=== PATIENT | female | born 2000 | race Caucasian/White ===

== ENCOUNTER 2021-01-17 17:25 | Emergency (ER) | payer OTHER ==
[~2021-01-17] VITALS: Ht 157.5 cm; Wt 99.8 kg
--- OUTSIDE RECORDS SUMMARY | 2021-01-17 17:31 | XMS REPORT | Clinical Summary ---
Author Author [facility] Organization [facility] Address Unknown Phone Unavailable Care Team Providers Care Bat Lathe Operator Name Role Phone Ella Sims DO PCP Allergies No Known Active Allergies Medications End Date Status Medication Sig Dispensed Refills Start Date Active copper (PARAGARD) 380 1 each by 0 square mm IUD IUD Intrauterine route every 10 years. Active fluticasone propionate SPRAY 1 SPRAY 16 mL 2 0 (FLONASE) 50 INTO EACH 1 mcg/actuation nasal NOSTRIL EVERY sprayIndications: DAY Allergic rhinitis, unspecified seasonality, unspecified trigger Active cetirizine (ZYRTEC) 10 MG TAKE 1 TABLET 30 tablet 1 tabletIndications: BY MOUTH 1 Allergic rhinitis, EVERY DAY IN unspecified seasonality, THE EVENING unspecified trigger 03/24/2021 Active lisdexamfetamine Take 1 30 capsule 0 (VYVANSE) 30 MG capsule (30 1 capsuleIndications: mg total) by Attention deficit mouth every disorder (ADD) without morning. hyperactivity 02/22/2021 Active lisdexamfetamine Take 1 30 capsule 0 (VYVANSE) 30 MG capsule (30 1 capsuleIndications: mg total) by Attention deficit mouth every disorder (ADD) without morning. hyperactivity 01/23/2021 Active lisdexamfetamine Take 1 30 capsule 0 (VYVANSE) 30 MG capsule (30 1 capsuleIndications: mg total) by Attention deficit mouth every disorder (ADD) without morning. hyperactivity 12/24/2021 Active escitalopram oxalate Take 1 tablet 90 tablet 1 (LEXAPRO) 20 mg (20 mg total) 1 tabletIndications: by mouth Anxiety daily. Active triamcinolone (KENALOG) APPLY TO 30 g 1 0.1 % AFFECTED AREA 1 ointmentIndications: TWICE A DAY Eczema, unspecified type 12/24/2020 Discontinued (Therapy comple charissa) escitalopram oxalate TAKE 1 TABLET 90 tablet 1 (LEXAPRO) 10 mg BY MOUTH 1 tabletIndications: EVERY DAY Moderate major depression (HCC), Anxiety 12/27/2020 Discontinued triamcinolone (KENALOG) Apply 30 g 1 0.1 % topically 2 1 ointmentIndications: (two) times a Eczema, unspecified type day. 12/24/2020 Discontinued (Reorder) lisdexamfetamine Take 1 30 capsule 0 (VYVANSE) 30 MG capsule (30 1 capsuleIndications: mg total) by Attention deficit mouth every disorder (ADD) without morning. hyperactivity Active Problems Problem Noted Date Moderate major depression 09/20/2020 Last Assessment & Plan: Formatting of this note might be differ ent from the original. - improved/stable - cont Lexapro 10mg - Pt agreed to call 911, go to nearest ED or contact physician if experiencing worsening psychiatric dete rioration, including but not limited to risks to self or others or inability to self care Anxiety 09/20/2020 Last Assessment & Plan: Formatting of this note might be differ ent from the original. - stable/doing well - cont Lexapro 20mg - stable, doing well - Pt to call 911, go to nearest ED or c ontact physician if experiencing worsening psychiatric deterioration, in cluding but not limited to risks to self or others or inability to self car e ADD (attention deficit disorder) 11/13/2019 Last Assessment & Plan: Formatting of this note might be differ ent from the original. - stable/doing well - cont Vyvanse 30 mg - Pt stable on med, good benefit with n o side effects. - Aware of side effects and precautions . - Controlled Rx History reviewed - f/u 3 months IUD (intrauterine device) in place 11/13/2019 Overview: Formatting of this note might be differ ent from the original. 2018 Encounters Care Team Description Date Type Specialty Ella Sims, DO Medication Refill 12/25/2020 Refill Primary Care Levi, Ella, DO Attention deficit disorder (ADD) without hyperactivity (Primary Dx); Anxiety 12/24/2020 Video Visit Primary Care Deysi Salguero RN COVID inquiry 12/21/2020 Telephone Primary Care Ella Sims, Medication Refill 12/03/2020 Refill Primary Care Ella Sims DO Medication Refill 12/03/2020 Refill Primary Care Ella Sims DO Attention deficit disorder (ADD) without hyperactivity (Primary Dx); Anxiety; Allergic rhinitis, unspecified seasonality, unspecified trigger; Fatigue, unspecified type; Suspected sleep apnea 11/10/2020 Office Visit Primary Care from Last 3 Months Immunizations Name Administration Dates Next Due DTaP 05/08/2005, 08/21/2001, 10/2000, 2000, 2000 HPV Quadrivalent 12/04/2012, 06/14/2012, Hepatitis A (peds) 05/08/2005, 06/17/2004 Hepatitis B, pediatric or 2000, 2000, adolescent Hib (PRT-T) 08/21/2001, 2000, , 2000 IPV 05/08/2005, 08/21/2001, , 2000 Influenza QIV (IM) 01/26/2019 Influenza, Injectable, 03/01/2018 Madin Marisela Canine Kidney, Preservative Free, Quadrivalent MMR 05/08/2005, 06/25/2001 Meningococcal (Menactra) 12/07/2011 conjugate vaccine MCV4 Meningococcal B (Bexsero) 02/22/2017 Moderna Sars-cov-2 08/30/2020, 07/28/2020 Pneumococcal Conjugate 06/25/2001, 2000, , 2000 7-Valent Tdap 11/13/2019, 08/15/2010 Varicella 10/02/2008, 06/25/2001 Family History Medical History Relation Name Comments Diabetes Father emir davis type 2 Hypertension Father emir davis Tobacco Use Father emir davis Drug abuse Maternal Aunt jose e denilson Alcohol abuse Maternal jackie harris Grandfather (my moms dad ) Cancer Maternal rolanedray harris lung and brain cancerr Grandfather (my moms dad ) ADD / ADHD Mother yohana davis Breast cancer Mother yohana davis Cancer Mother yohana plummer cancer ryan Hypertension Mother yohana davis Hyperthyroidism Mother yohana davis Learning disabilities Mother yohana davis Hearing loss Paternal cristian davis Grandfather Diabetes Paternal silvia harris type 1 Grandmother Learning disabilities Paternal silvia harris Grandmother Miscarriages / Paternal silvia harris Stillbirths Grandmother Relation Name Status Comments Brother Alive Father emir davis Alive Maternal Aunt jose e oreilly Maternal Grandfather jackie harris (my moms dad ) Mother yohana davis Alive Paternal Grandfather cristian davis Paternal Grandmother silvia harris Social History Date Tobacco Use Types Packs/Day Years Used Never Smoker 0 0 Smokeless Tobacco: Never Used Tobacco Cessation: Counseling Given: No Comments Alcohol Use Standard Drinks/Week Yes 0 (1 standard drink = 0.6 o z pure alcohol) Alcohol Habits Answer Date Recorded How often do you have a drink containing alcohol? Monthly or less 11/13/2019 How many drinks containing alcohol do you have on 1 or 2 11/13/2019 a typical day when you are drinking? How often do you have six or more drinks on one Not asked occasion? Sex Assigned at Date Recorded Female 11/08/2019 2:33 PM CDT Last Filed Vital Signs Reading Time Taken Comments Vital Sign 112/78 11/10/2020 3:01 PM CDT Blood Pressure 85 11/10/2020 3:01 PM CDT Pulse 36.6 C (97.8 F) 11/10/2020 3:01 PM CDT Temperature 16 11/10/2020 3:01 PM CDT Respiratory Rate 98% 11/10/2020 3:01 PM CDT Oxygen Saturation - - Inhaled Oxygen Concentration 104.3 kg (230 lb) 11/10/2020 3:01 PM CDT Weight 157.5 cm (5' 2") 11/10/2020 3:01 PM CDT Height 42.07 11/10/2020 3:01 PM CDT Body Mass Index Plan of Treatment Health Maintenance Due Date Last Done Comments Influenza Vaccine (#1) 2021 01/26/2019, 03/01/2018 Depression Monitoring 11/10/2021 11/10/2020 PHQ-9 # Td/Tdap# 11/12/2029 11/13/2019, 08/15/2010, 05/08/2005, Additional history exists Pneumococcal Vaccine: Aged Out 06/25/2001, No longe r eligible based on patient's age to Pediatrics (0 to 5 Years) 2000, complete th is topic and At-Risk Patients (6 2000, to 64 Years) Additional history exists MCV4 Vaccine Aged Out 12/07/2011 No longer eligi ble based on patient's age to complete this topic HPV Vaccine Completed 12/04/2012, 06/14/2012, 05/09/2012 COVID-19 Vaccine Completed 08/30/2020, 07/28/2020 Results Not on filefrom Last 3 Months Insurance Type Payer Benefit Subscriber ID Effective Phone Address Plan / Dates Group AETNA AETNA [id number] LOCAL resent 6 1951 Asiya Davis Personal/F Self [id number] (Home) [place], [place] [address] TRUE DAVIS Personal/F Father 10/23/1960 [id number] (Home) [place], [place] [address] Advance Directives For more information, please contact: [phone] Patient Weed Inspector Explanation Type Date Recorded Advance Directives and Living Will Power of Fur Drummer Health Care Directive Health Care Directive
--- OUTSIDE RECORDS SUMMARY | 2021-01-17 17:31 | XMS REPORT | Encounter Summary ---
Author Author [facility] Organization [facility] Address Unknown Phone Unavailable Care Team Providers Care Percussion Tuner Name Role Phone Ella Sims PCP Reason for Visit * Reason Onset Date Comments COVID inquiry 12/21/2020 Encounter Details Care Team Description Date Type Department Deysi Salguero, RN COVID inquiry 12/21/2020 Telephone [facility] [address] [facility] [address] [place] [address] Social History Date Tobacco Use Types Packs/Day Years Used Never Smoker 0 0 Smokeless Tobacco: Never Used Comments Alcohol Use Standard Drinks/Week Yes 0 [...] Date Recorded Female 11/08/2019 2:33 PM CDT documented as of this encounter Miscellaneous Notes * Telephone Encounter - Deysi Salguero RN - 12/21/2020 12:09 PM CDT Pt request her OV for 12/24/20 to be changed to VV, b/c pt has been exposed to COV ID by her mom. Exposed yesterday. Pt has no sx but has already sched herself f or COVID testing today at [facility]. SWRN documented in this encounter Plan of Treatment Not on filedocumented as of this encounter Visit Diagnoses Not on filedocumented in this encounter
--- OUTSIDE RECORDS SUMMARY | 2021-01-17 17:31 | XMS REPORT | Encounter Summary ---
Author Author [facility] Organization [facility] Address Unknown Phone Unavailable Care Team Providers Care Candle Wicker Name Role Phone Ella Sims DO PCP Reason for Visit * Reason Comments Follow-up Encounter Details Care Team Description [place] [address] [facility] [address] [place] [address] Attention deficit disorder (ADD) without hyperactivity (Primary Dx); Anxiety 12/24/[address] [facility] [address] [facility] [address] [place], [place] [id number] Social History Date Tobacco Use Types Packs/Day [...] PM CDT documented as of this encounter Progress Notes * Ella Sims DO - 12/24/2020 4:00 PM CDT Patient Name: Asiya Huggins Visit Date: 12/24/2020 CONSENT OBTAINED FOR VIDEO VISIT PLATFORM: Yes Chief Complaint: Follow-up History of Present Illness Presents via VV for f/u. Anxiety improved w/ Lexapro increase to 20mg. Would like to continue at this dos e. presents for ADHD med management. Doing well on Vyvanse 30mg. She starts school soon and we see how she feels taking this with stool, length of coverage etc, sh ray has been on summer break. Topical steroid has helped with her eczema. Stable controlled with current regimen. Denies any new side effects. Denies any change in efficacy. Denies any change in sleep, mood or appetite. Denies anxiety, irritability. Denies SI/HI. No weight changes/CP/palpitations/dizziness. ROS negative except for HPI Review of Systems Vitals available and taken on home machine: Height: 1.575 m (5' 2") Weight:: 103.6 kg (228 lb 8 oz) IBW(lbs.) (Calculated) : 110.45 Pulse:: 82 BMI (Calculated): 41.8 Physical Exam Video visits do not allow for auscultation of heart and lungs or measurement of vital signs. Any vital signs documented are self-reported. Appearance: wearing casual clothing, appropriate grooming and hygiene Behavior: calm, cooperative, good eye contact Speech: normal tone, normal rhythm, normal rate, nonpressured Mood: normal Affect: euthymic, reactive, full range, nonlabile, mood congruent Thought content: denies active and passive SI/HI Thought process: linear, logical, goal-directed Perceptions: denies AVH Insight/Judgement: good Alert and oriented x 4 Concentration: intact Memory: grossly intact Assessment/Plan Problem List Items Addressed This Visit Behavioral Health ADD (attention deficit disorder) - Primary (Chronic) - stable/doing well - cont Vyvanse 30 mg - Pt stable on med, good benefit with no side effects. - Aware of side effects and precautions. - Controlled Rx History reviewed - f/u 3 months Relevant Medications lisdexamfetamine (VYVANSE) 30 MG capsule (Start on 02/22/2021) lisdexamfetamine (VYVANSE) 30 MG capsule (Start on 01/23/2021) lisdexamfetamine (VYVANSE) 30 MG capsule escitalopram oxalate (LEXAPRO) 20 mg tablet Anxiety - stable/doing well - cont Lexapro 20mg - stable, doing well - Pt to call 911, go to nearest ED or contact physician if experiencing worsenin g psychiatric deterioration, including but not limited to risks to self or other s or inability to self care Relevant Medications escitalopram oxalate (LEXAPRO) 20 mg tablet For date of service 12/24/2020, the patient was located at her home and I am seein g the patient at office via [employer] video visit.. Provider: Ella Sims DO Provider office location: [address] [facility] [address] Dept: [phone] Dept documented in this encounter Miscellaneous Notes * Assessment & Plan Note - Ella Sims DO - 12/24/2020 4:47 PM CDT Associated Problem(s): Anxiety - stable/doing well - cont Lexapro 20mg - stable, doing well - Pt to call 911, go to nearest ED or contact physician if experiencing worsenin g psychiatric deterioration, including but not limited to risks to self or other s or inability to self care * Assessment & Plan Note - Ella Sims DO - 12/24/2020 4:46 PM CDT Associated Problem(s): ADD (attention deficit disorder) - stable/doing well - cont Vyvanse 30 mg - Pt stable on med, good benefit with no side effects. - Aware of side effects and precautions. - Controlled Rx History reviewed - f/u 3 months documented in this encounter Plan of Treatment Not on filedocumented as of this encounter Visit Diagnoses Diagnosis Attention deficit disorder (ADD) withou t hyperactivity - Primary Anxiety Anxiety state, unspecified documented in this encounter
--- OUTSIDE RECORDS SUMMARY | 2021-01-17 17:31 | XMS REPORT | Encounter Summary ---
Author Author [facility] Organization [facility] Address Unknown Phone Unavailable Care Team Providers Care Per Diem Nurse Name Role Phone Ella Sims DO PCP Reason for Visit * Reason Comments Medication Refill Encounter Details Care Team Description [place] [address] [facility] [address] [place], [place] [id number] Medication Refill 12/03/2020 [facility] [address] [facility] [address] [place], [place] [id number] Social History Date Tobacco Use Types Packs/Day [...] encounter Miscellaneous Notes * Telephone Encounter - Carolyne Vazquez MA - 12/03/2020 9:42 AM CDT Future appt 12/20/2020 Last office visit 11/10/2020 Last labs 10/08/2020 documented in this encounter Plan of Treatment Not on filedocumented as of this encounter Visit Diagnoses Diagnosis Allergic rhinitis, unspecified seasonal ity, unspecified trigger documented in this encounter
--- OUTSIDE RECORDS SUMMARY | 2021-01-17 17:31 | XMS REPORT | Encounter Summary ---
Author Author [facility] Organization [facility] Address Unknown Phone Unavailable Care Team Providers Care Granite Block Paver Name Role Phone Ella Sims DO PCP Reason for Visit * Reason Comments Medication Refill Encounter Details Care Team Description [place] [address] [facility] [address] [place], [place] [address] Medication Refill 12/03[facility] [address] [facility] [address] [place], [place] [address] Social History Date Tobacco Use Types Packs/Day [...] Encounter - Carolyne Vazquez MA - 12/03/2020 7:54 AM CDT Last office visit 11/10/2020 Last labs 10/08/2020 documented in this encounter Plan of Treatment Not on filedocumented as of this encounter Visit Diagnoses Diagnosis Allergic rhinitis, unspecified seasonal ity, unspecified trigger documented in this encounter
--- OUTSIDE RECORDS SUMMARY | 2021-01-17 17:31 | XMS REPORT | Encounter Summary ---
Author Author [facility] Organization [facility] Address Unknown Phone Unavailable Care Team Providers Care Dancer Or Choreographer Name Role Phone Ella Sims DO PCP Reason for Visit * Reason Comments Medication Refill Encounter Details Care Team Description [place] [address] [facility] [address] [place], [place] [phone] Medication Refill 12/25/2020 [facility] [address] [facility] [address] [place], [place] [phone] Social History Date Tobacco Use Types Packs/Day [...] Telephone Encounter - Carolyne Vazquez MA - 12/27/2020 5:08 PM CDT Last visit 12/24/2020-Video Last office visit 11/10/2020 Last labs 10/08/2020 documented in this encounter Plan of Treatment Not on filedocumented as of this encounter Visit Diagnoses Diagnosis Eczema, unspecified type documented in this encounter
--- NOTE | 2021-01-17 18:10 | ED Lower Extremity ---
General Chief Complaint: Lower Extremity Stated Complaint: L ANKLE PAIN / INJ Nursing Triage Note: PT AMBULATE TO TRIAGE WITHOUT DIFFICULTY WITH C/O LEFT ANKLE PAIN. PT STATES SHE WAS DOING ZOOMBA AND MAY HAVE ROLLED HER ANKLE. PT STATES THAT SHE FINISHED HER CLASS BUT "COULD NOT DO IT WELL". 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 Onset: just prior to arrival Severity: moderate Pain/Injury Location: left ankle Method of Injury: twisted Modifying Factors: Worse With Movement Allergies and Home Medications Allergies Coded Allergies: No Known Allergies (Verified Allergy, Unknown, 01/17/21) Patient Home Medication List Home Medication List Reviewed: Yes Review of Systems Constitutional: see HPI EENTM: see HPI Respiratory: no symptoms reported Cardiovascular: no symptoms reported Genitourinary: no symptoms reported Musculoskeletal: see HPI Skin: no symptoms reported Psychiatric/Neurological: No Symptoms Reported Past Wyochbo-Wmtoae-Fipixm Hx Patient Social History Tobacco Use?: No Smoking Status: Never a Smoker Substance use?: No Alcohol Use?: Yes Alcohol Frequency: Once in a while Pt feels they are or have been: No Immunizations Up To Date First/Initial COVID19 Vaccinat: 07/2020 Second COVID19 Vaccination David: 08/2020 COVID19 Vaccine Education General Manager: MODERNA Physical Exam Vital Signs Vital Signs - First Documented 01/17/21 17:34 Temp 37.2 Pulse 97 Resp 17 B/P (MAP) 127/67 (87) O2 Delivery Room Air Capillary Refill : Less Than 3 Seconds Height, Weight, BMI Height: '" Weight: lbs. oz. kg; 40.00 BMI Method: General Appearance: WD/WN, no apparent distress HEENT: PERRL/EOMI, normal ENT inspection Respiratory: no respiratory distress, no accessory muscle use Hips: bilateral hip non-tender, bilateral hip normal inspection, bilateral hip normal range of motion Legs: bilateral leg non-tender, bilateral leg normal inspection, bilateral leg normal range of motion Knees: bilateral knee non-tender, bilateral knee normal inspection, bilateral knee normal range of motion Ankles: left ankle swelling, left ankle other (ttp over lateral malleolus) Feet: bilateral foot non-tender, bilateral foot normal inspection, bilateral foot normal range of motion Neurologic/Psychiatric: alert, normal mood/affect, oriented x 3 Skin: normal color, warm/dry Progress/Results/Core Measures Results/Orders My Orders Orders - EMILY MARLOW APRN Ct Extremity Lower Left Wo (01/17/21 18:16) Vital Signs/I&O 01/17/21 17:34 Temp 37.2 Pulse 97 Resp 17 B/P (MAP) 127/67 (87) O2 Delivery Room Air Blood Pressure Mean: 87 Departure Communication (Admissions) NAME: [facility] REC#: [id number] PT STATUS: REG ER : 2000 PHYSICIAN: EMILY MARLOW APRN ADMIT DATE: 01/17/21/ER Draft Date of Exam:01/17/21 CT EXTREMITY LOWER LEFT WO INDICATION: Left ankle pain, abnormal plain radiograph. TECHNIQUE: CT of the left ankle obtained without IV contrast. Auto Exposure Controls were utilized during the CT exam to meet ALARA standards for radiation dose reduction. FINDINGS: There is no evidence of acute fracture. 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 IMPRESSION: No acute abnormality. The area in question on the plain radiograph appears to be an irregular lucency with an accessory ossicle adjacent to the medial portion of the navicular bone. This does not appear to be an acute finding. Dictated on workstation # [id number] Dict: 01/17/21 1848 Trans: 01/17/21 1855 [id number] [id number] Interpreted by: MATHEW JOSEPH MD Electronically signed by: Impression Primary Impression: Sprain and strain of ankle Disposition: 01 HOME, SELF-CARE Condition: Stable Departure-Patient Inst. Decision time for Depature: 18:58 Referrals: NO,LOCAL PHYSICIAN (PCP/Family) Primary Care Physician Patient Instructions: Ankle Sprain ED Add. Discharge Instructions: 1. Elevated the foot as much as possible. Ice pack to the area. tylenol and motrin for pain> Use crutches when walking as needed for pain. When you can walk without pain, you're allowed to do so. Take about 1-2 weeks off of zoomba class. All discharge instructions reviewed with patient and/or family. Voiced understanding. Work/School Note: Work Release Form Date Seen in the Emergency Department: Jan 17, 2021 Return to Work: Jan 20, 2021 Other Restrictions Listed Below: No zoomba x10 days EMILY MARLOW APRN Jan 17, 2021 18:10
--- NOTE | 2021-01-17 18:13 | Diagnostic Imaging Report ---
INDICATION: Left ankle pain. TECHNIQUE: AP, oblique, and lateral views of the left ankle are obtained. FINDINGS: There is a questionable lucency in the anterior portion of the calcaneus on the lateral view. Correlate for point tenderness in this area. The distal tibia and fibula are intact. Talus appears intact. IMPRESSION: Questionable lucency in the anterior portion of the calcaneus on the lateral view. Correlate for point tenderness in this area. Consider CT or follow-up images, if clinically warranted. Dictated by: Dictated on workstation # [id number]
--- NOTE | 2021-01-17 18:57 | Diagnostic Imaging Report ---
INDICATION: Left ankle pain, abnormal plain radiograph. TECHNIQUE: CT of the left ankle obtained without IV contrast. Auto Exposure Controls were utilized during the CT exam to meet ALARA standards for radiation dose reduction. FINDINGS: There is no evidence of acute fracture. 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 IMPRESSION: No acute abnormality. The area in question on the plain radiograph appears to be an irregular lucency with an accessory ossicle adjacent to the medial portion of the navicular bone. This does not appear to be an acute finding. Dictated by: Dictated on workstation # [id number]
[2021-01-17 19:10] VITALS: BP 134/78
== END 2021-01-17 19:10 | disposition home or self-care (01) ==
LOC: ER 17:28
DX: S93.402A Sprain of unspecified ligament of left ankle, initial encounter (principal); X50.1XXA Overexertion from prolonged static or awkward postures, initial encounter; Y93.A3 Activity, aerobic and step exercise
CPT/HCPCS: 73610; 73700